=== PATIENT | female | born 1990 | race Caucasian/White ===

== ENCOUNTER → 2025-06-01 16:44 | Outpatient (REF) | payer BC, SELFPAY | LOC: RAD 16:44 | PROVIDERS: ATTENDING PHYSICIAN Student in an Organized Health Care Education/Training Program | DX: M54.9 Dorsalgia, unspecified (principal); M79.89 Other specified soft tissue disorders | CPT/HCPCS: 72072; 73140 ==

== ENCOUNTER → 2025-06-09 08:47 | Outpatient (REF) | payer BC, SELFPAY | LOC: RAD 08:47 | PROVIDERS: ATTENDING PHYSICIAN Advanced Practice Midwife; FAMILY PHYSICIAN Student in an Organized Health Care Education/Training Program | DX: N97.9 Female infertility, unspecified (principal) | CPT/HCPCS: 76830; 76856 ==